=== PATIENT | female | born 1990 | race American Indian/Alaskan Native ===

== ENCOUNTER 2018-05-02 09:42 | Emergency (ER) | payer MEDICAID ==
[2018-05-02 09:55] VITALS: RESP 20; TEMP 98.3; O2SAT 100
--- NOTE | 2018-05-02 11:28 | C.PDOC ---
History Of Present Illness Patient is a 27 year old female who presents to the ED following a panic attack that she had on the train this [place]. Patient states that she was hyperventilating and crying. After presenting to the ED her symptoms have resolved. She states that she has a psych team that she sees and is going to follow up with them today. She denies any SI/HI, hallucinations, SOB, CP, falls, or other medical complaints at the moment. Time Seen by Provider: 05/02/18 09:58 Chief Complaint (Nursing): Psychiatric Evaluation History Per: Patient History/Exam Limitations: no limitations Onset/Duration Of Symptoms: Hrs (morning ) Current Symptoms Are (Timing): Gone Suicide/Self Injury Attempted (Context): None Modifying Factor(s): None Associated Symptoms: denies: Suicidal Thoughts, Suicidal Plan Recent travel outside of the [place]: No Additional History Per: Patient Past Medical History Reviewed: Historical Data, Nursing Documentation, Vital Signs Vital Signs: Last Vital Signs Temp 98.3 F 05/02/18 09:50 Pulse 61 05/02/18 09:50 Resp 20 05/02/18 09:50 BP 105/66 05/02/18 09:50 Pulse Ox 100 05/02/18 09:50 - Medical History PMH: Bipolar Disorder, Depression, Schizophrenia Surgical History: No Surg Hx Family History: States: Unknown Family Hx - Social History Hx Alcohol Use: No Hx Substance Use: No - Immunization History Hx Tetanus Toxoid Vaccination: No Hx Influenza Vaccination: No Hx Pneumococcal Vaccination: No Review Of Systems Cardiovascular: Negative for: Chest Pain Respiratory: Negative for: Shortness of Breath Psych: Negative for: Suicidal ideation, Other (Homicidal Ideation or Hallucinat ions ) Physical Exam - Physical Exam Appears: Non-toxic, No Acute Distress, Other (calm and cooperative ) Head: Atraumatic, Normacephalic Neurological/Psych: Oriented x3, Normal Speech, Normal Cognition ED Course And Treatment O2 Sat by Pulse Oximetry: 100 (on RA) Pulse Ox Interpretation: Normal Progress Note: On reevaluation, patient felt better and was in no acute distress. Patient was stable for discharge. Disposition Counseled Patient/Family Regarding: Diagnosis, Need For Followup - Disposition Referrals: [facility] [Outside] Disposition: HOME/ ROUTINE Disposition Time: 11:30 Condition: STABLE Additional Instructions: FOLLOW UP WITH YOUR PSYCHIATRIST/COUNSELOR IN 1-2 DAYS RETURN TO ER IF YOU HAVE ANY CONCERNING SYMPTOMS Instructions: Panic Disorder (DC) Forms: [employer] (Spanish) Print Language: LUXEMBOURGISH - Clinical Impression Clinical Impression: Panic attack - Scribe Statement The provider has reviewed the documentation as recorded by the Oneil Brown All medical record entries made by the Memoibgerman were at my direction and personally dictated by me. I have reviewed the chart and agree that the record accurately reflects my personal performance of the history, physical exam, medical decision making, and the department course for this patient. I have also personally directed, reviewed, and agree with the discharge instructions and disposition.
[2018-05-02 11:38] VITALS: BP 95/62; PULSE 60
== END 2018-05-02 12:00 | disposition home or self-care (01) ==
LOC: C.ER 09:42
DX: F41.0 Panic disorder [episodic paroxysmal anxiety] (principal)